=== PATIENT | female | born 1935 | race Hispanic/Latino ===

== ENCOUNTER 2017-08-01 17:39 | Outpatient (CLI) | payer MEDICARE ==
--- NOTE | 2017-08-01 23:28 | XRay Report ---
FINAL REPORT PROCEDURE: XR CHEST ROUTINE 2V TECHNIQUE: PA and lateral chest radiographs were obtained. CPT 53710 HISTORY: Chronic kidney disease. COMPARISON: No prior studies are available for comparison. FINDINGS: Heart: Normal. Mediastinum/Vessels: Mild aortic tortuosity and calcification. Lungs/Pleural space: Moderate hyperinflation and emphysematous change with increased retrosternal clear space and flattening of the diaphragms. Bony thorax: Sternotomy. Osteopenia with multilevel disc space narrowing and osteophytes. Slight wedge compression in the mid thoracic spine. Other: IMPRESSION: No radiographic evidence of acute cardiopulmonary disease. Mild aortic tortuosity and calcification. Moderate hyperinflation with emphysematous change.
== END 2017-08-01 17:40 | disposition home or self-care (01) ==
LOC: XRAY 17:39
DX: N18.5 Chronic kidney disease, stage 5 (principal); J98.11 Atelectasis; M85.88 Other specified disorders of bone density and structure, other site; I70.0 Atherosclerosis of aorta; Z98.890 Other specified postprocedural states
CPT/HCPCS: 36415; 71046; 86705; 86706; 86707; 87350

== ENCOUNTER 2017-08-29 12:43 | Inpatient (IN) | payer MEDICARE ==
[2017-08-29 13:55] LABS: Basophils # (Auto) 0.2 K/mm3 (0.0-0.1); Basophils % (Auto) 2.5 % (0.0-1.8); Eosinophils # (Auto) 0.2 K/mm3 (0.0-0.4); Eosinophils % (Auto) 2.8 % (0.0-4.3); Hematocrit 31.8 % (30.3-42.9); Hemoglobin 10.3 gm/dl (10.1-14.3); Lymphocytes # (Auto) 1.3 K/mm3 (1.2-5.4); Lymphocytes % (Auto) 21.9 % (13.4-35.0); Mean Corpuscular HGB Conc 33 % (30-34); Mean Corpuscular Hemoglobin 31 pg (28-32); Mean Corpuscular Volume 96 fl (79-97); Monocytes # (Auto) 0.6 K/mm3 (0.0-0.8); Monocytes % (Auto) 9.8 % (0.0-7.3); Platelet Count 195 K/mm3 (140-440); Red Cell Distribution Width 17.7 % (13.2-15.2)
--- NOTE | 2017-08-29 13:55 | Emergency Department Report ---
ED General Adult HPI - General Chief complaint: High BP Stated complaint: VAGAL Time Seen by Provider: 08/29/17 13:44 Source: patient, EMS Mode of arrival: Stretcher Limitations: No Limitations - History of Present Illness Initial comments: Patient is a 81-year-old female on chronic dialysis. She was on a Sunday schedule. However she had dialysis on Sunday she states instead an expectation of a Lexiscan today and dialysis subsequently. In any case she reports to me that she got very weak and dizzy felt like she might pass out and the kitchen bath designer office today. She was sent to this facility by Dr. Irvin. Thu her nurse practitioner reported to me that the patient had an episode of complete heart block. I do have some telemetry monitoring strips and do note at least a hypotensive episode with 2-1 block and bradycardia. Complete records are not available. In any case the patient presents to the emergency department now feeling largely back to normal. She states that she has been told that her heart rate was slow at times past. He is currently taking amlodipine (and clonidine?). She has a history of hypothyroidism. Severity scale (0 -10): 0 Consistency: now resolved Associated Symptoms: denies other symptoms - Related Data Home Medications Medication Instructions Recorded Confirmed Last Taken Amlodipine Besylate/Valsartan 1 each PO QDAY 08/29/17 08/29/17 Unknown [Amlodipine-Valsartan 5-160 mg] Aspirin [Aspirin BABY CHEW TAB] 81 mg PO QDAY 08/29/17 08/29/17 Unknown AtorvaSTATin [Lipitor] 10 mg PO QHS 08/29/17 08/29/17 Unknown Levothyroxine [Synthroid] 0.088 mg PO QAM 08/29/17 08/29/17 Unknown Sertraline [Zoloft] 50 mg PO QDAY 08/29/17 08/29/17 Unknown cloNIDine [Catapres] 0.1 mg PO QDAY 08/29/17 08/29/17 Unknown Allergies Allergy/AdvReac Type Severity Reaction Status Date / Time No Known Allergies Allergy Unverified 11/06/13 11:14 ED Review of Systems ROS: Stated complaint: VAGAL Other details as noted in HPI Constitutional: weakness (episode of weakness and near syncope following Archana scan. Otherwise patient denies intercurrent symptoms). denies: chills, fever Eyes: denies: eye pain, eye discharge, vision change ENT: denies: ear pain, throat pain Respiratory: denies: cough, shortness of breath, wheezing Cardiovascular: denies: chest pain, palpitations Endocrine: no symptoms reported Gastrointestinal: denies: abdominal pain, nausea, diarrhea Genitourinary: denies: urgency, dysuria, discharge Musculoskeletal: denies: back pain, joint swelling, arthralgia Skin: denies: rash, lesions Neurological: denies: headache, weakness, paresthesias Psychiatric: denies: anxiety, depression Hematological/Lymphatic: denies: easy bleeding, easy bruising ED Past Medical Hx - Past Medical History Hx Renal Disease: Yes - Social History Substance Use Type: None - Medications Home Medications: Home Medications Medication Instructions Recorded Confirmed Last Taken Type Amlodipine Besylate/Valsartan 1 each PO QDAY 08/29/17 08/29/17 Unknown History [Amlodipine-Valsartan 5-160 mg] Aspirin [Aspirin BABY CHEW TAB] 81 mg PO QDAY 08/29/17 08/29/17 Unknown History AtorvaSTATin [Lipitor] 10 mg PO QHS 08/29/17 08/29/17 Unknown History Levothyroxine [Synthroid] 0.088 mg PO QAM 08/29/17 08/29/17 Unknown History Sertraline [Zoloft] 50 mg PO QDAY 08/29/17 08/29/17 Unknown History cloNIDine [Catapres] 0.1 mg PO QDAY 08/29/17 08/29/17 Unknown History ED Physical Exam - General Limitations: No Limitations General appearance: alert, in no apparent distress - Head Head exam: Present: atraumatic, normocephalic - Eye Eye exam: Present: normal appearance. Absent: scleral icterus - ENT ENT exam: Present: mucous membranes moist - Neck Neck exam: Present: normal inspection - Respiratory Respiratory exam: Present: normal lung sounds bilaterally, other (dialysis catheter site right chest). Absent: respiratory distress - Cardiovascular Cardiovascular Exam: Present: normal rhythm, bradycardia (initially bradycardic just below 60). Absent: systolic murmur, diastolic murmur, rubs, gallop - GI/Abdominal GI/Abdominal exam: Present: soft, normal bowel sounds. Absent: distended, tenderness, guarding, rebound, rigid - Extremities Exam Extremities exam: Present: normal inspection - Back Exam Back exam: Present: normal inspection - Neurological Exam Neurological exam: Present: alert, oriented X3, CN II-XII intact. Absent: motor sensory deficit - Psychiatric Psychiatric exam: Present: normal affect, normal mood - Skin Skin exam: Present: warm, dry, intact, normal color. Absent: rash ED Course Vital Signs 08/29/17 13:30 Temperature 98.8 F Pulse Rate 70 Respiratory 13 Rate Blood Pressure 199/47 [Left] O2 Sat by Pulse 97 Oximetry ED Medical Decision Making - Lab Data Laboratory Results - last 24 hr 08/29/17 08/29/17 08/29/17 13:39 13:39 13:39 WBC 6.1 RBC 3.30 L Hgb 10.3 Hct 31.8 MCV 96 MCH 31 MCHC 33 RDW 17.7 H Plt Count 195 Lymph % (Auto) 21.9 [place] % (Auto) 9.8 H Eos % (Auto) 2.8 Baso % (Auto) 2.5 H Lymph # 1.3 [place] # 0.6 Eos # 0.2 Baso # 0.2 H Seg Neutrophils % 63.0 Seg Neutrophils # 3.9 PT INR APTT Sodium 144 Potassium 4.4 Chloride 104.6 Carbon Dioxide 26 Anion Gap 18 BUN 37 H Creatinine 3.1 H Estimated GFR 14 BUN/Creatinine Ratio 12 Glucose 106 H Calcium 9.6 Phosphorus Magnesium 1.80 Total Bilirubin Direct Bilirubin Indirect Bilirubin AST ALT Alkaline Phosphatase Total Creatine Kinase 35 CK-MB (CK-2) 2.0 CK-MB (CK-2) Rel Index 5.7 H Troponin T 0.026 NT-Pro-B Natriuret Pep 6395 H Total Protein Albumin Albumin/Globulin Ratio TSH Free T4 08/29/17 08/29/17 08/29/17 13:39 13:58 13:58 WBC RBC Hgb Hct MCV MCH MCHC RDW Plt Count Lymph % (Auto) [place] % (Auto) Eos % (Auto) Baso % (Auto) Lymph # [place] # Eos # Baso # Seg Neutrophils % Seg Neutrophils # PT 13.3 INR 0.96 APTT 32.7 Sodium Potassium Chloride Carbon Dioxide Anion Gap BUN Creatinine Estimated GFR BUN/Creatinine Ratio Glucose Calcium Phosphorus 3.70 Magnesium Total Bilirubin 0.40 Direct Bilirubin < 0.2 Indirect Bilirubin 0.2 AST 14 ALT 7 Alkaline Phosphatase 94 Total Creatine Kinase CK-MB (CK-2) CK-MB (CK-2) Rel Index Troponin T NT-Pro-B Natriuret Pep Total Protein 6.4 Albumin 3.6 L Albumin/Globulin Ratio 1.3 TSH 0.422 Free T4 1.22 08/29/17 16:29 WBC RBC Hgb Hct MCV MCH MCHC RDW Plt Count Lymph % (Auto) [place] % (Auto) Eos % (Auto) Baso % (Auto) Lymph # [place] # Eos # Baso # Seg Neutrophils % Seg Neutrophils # PT INR APTT Sodium Potassium Chloride Carbon Dioxide Anion Gap BUN Creatinine Estimated GFR BUN/Creatinine Ratio Glucose Calcium Phosphorus Magnesium Total Bilirubin Direct Bilirubin Indirect Bilirubin AST ALT Alkaline Phosphatase Total Creatine Kinase CK-MB (CK-2) CK-MB (CK-2) Rel Index Troponin T 0.017 NT-Pro-B Natriuret Pep Total Protein Albumin Albumin/Globulin Ratio TSH Free T4 - EKG Data -: EKG Interpreted by Me - EKG Data Sinus bradycardia first-degree AV block left bundle-branch block 08/29/17 19:52 - Radiology Data interpreted by me: Chest x-ray permacath right chest no decompensation Critical care attestation.: If time is entered above; I have spent that time in minutes in the direct care of this critically ill patient, excluding procedure time. ED Disposition Clinical Impression: Complete heart block, First degree AV block, Left bundle branch block, End stage renal disease on dialysis Cardiomyopathy Qualifiers: Cardiomyopathy type: unspecified Qualified Code(s): I42.9 - Cardiomyopathy, unspecified Disposition: OP ADMIT IP TO THIS HOSP Is pt being admited?: Yes Does the pt Need Aspirin: Yes Condition: Stable Time of Disposition: 17:00
[2017-08-29 14:12] LABS: Calcium 9.6 mg/dL (8.4-10.2)
[2017-08-29 14:16] LABS: Alanine Aminotransferase 7 units/L (7-56); Albumin 3.6 g/dL (3.9-5)
--- NOTE | 2017-08-29 14:18 | XRay Report ---
Single view chest: Compared to 08/01/17. History: Dysphagia. Findings: Borderline cardiomegaly. Trachea is midline. Large-bore venous catheter tip in mid superior vena cava. No consolidation, pneumothorax or pleural effusion. Impression: No acute cardiopulmonary findings.
[2017-08-29 14:28] LABS: Bilirubin,Direct < 0.2 mg/dL (0-0.2)
[2017-08-29 14:38] LABS: Free T4 (Free Thyroxine) 1.22 ng/dL (0.76-1.46)
[2017-08-29 14:54] LABS: INR 0.96 (0.87-1.13)
[2017-08-29 14:55] LABS: Partial Thromboplastin Time 32.7 Sec. (24.2-36.6)
--- NOTE | 2017-08-29 19:07 | History and Physical Report ---
History of Present Illness Date of examination: 08/29/17 Medications and Allergies Allergies Allergy/AdvReac Type Severity Reaction Status Date / Time No Known Allergies Allergy Unverified 11/06/13 11:14 Exam - Constitutional Vitals: Temp Pulse Resp BP Pulse Ox 98.8 F 70 15 153/53 98 08/29/17 13:30 08/29/17 18:44 08/29/17 18:44 08/29/17 18:44 08/29/17 18:44 Results - Labs CBC & Chem 7: 08/29/17 13:39 08/29/17 13:39 Labs: Laboratory Last Values WBC 6.1 K/mm3 (4.5-11.0) 08/29/17 13:39 RBC 3.30 M/mm3 (3.65-5.03) L 08/29/17 13:39 Hgb 10.3 gm/dl (10.1-14.3) 08/29/17 13:39 Hct 31.8 % (30.3-42.9) 08/29/17 13:39 MCV 96 fl (79-97) 08/29/17 13:39 MCH 31 pg (28-32) 08/29/17 13:39 MCHC 33 % (30-34) 08/29/17 13:39 RDW 17.7 % (13.2-15.2) H 08/29/17 13:39 Plt Count 195 K/mm3 (140-440) 08/29/17 13:39 Lymph % (Auto) 21.9 % (13.4-35.0) 08/29/17 13:39 [place] % (Auto) 9.8 % (0.0-7.3) H 08/29/17 13:39 Eos % (Auto) 2.8 % (0.0-4.3) 08/29/17 13:39 Baso % (Auto) 2.5 % (0.0-1.8) H 08/29/17 13:39 Lymph # 1.3 K/mm3 (1.2-5.4) 08/29/17 13:39 [place] # 0.6 K/mm3 (0.0-0.8) 08/29/17 13:39 Eos # 0.2 K/mm3 (0.0-0.4) 08/29/17 13:39 Baso # 0.2 K/mm3 (0.0-0.1) H 08/29/17 13:39 Seg Neutrophils % 63.0 % (40.0-70.0) 08/29/17 13:39 Seg Neutrophils # 3.9 K/mm3 (1.8-7.7) 08/29/17 13:39 PT 13.3 Sec. (12.2-14.9) 08/29/17 13:58 INR 0.96 (0.87-1.13) 08/29/17 13:58 APTT 32.7 Sec. (24.2-36.6) 08/29/17 13:58 Sodium 144 mmol/L (137-145) 08/29/17 13:39 Potassium 4.4 mmol/L (3.6-5.0) 08/29/17 13:39 Chloride 104.6 mmol/L (98-107) 08/29/17 13:39 Carbon Dioxide 26 mmol/L (22-30) 08/29/17 13:39 Anion Gap 18 mmol/L 08/29/17 13:39 BUN 37 mg/dL (7-17) H 08/29/17 13:39 Creatinine 3.1 mg/dL (0.7-1.2) H 08/29/17 13:39 Estimated GFR 14 ml/min 08/29/17 13:39 BUN/Creatinine Ratio 12 % 08/29/17 13:39 Glucose 106 mg/dL (65-100) H 08/29/17 13:39 Calcium 9.6 mg/dL (8.4-10.2) 08/29/17 13:39 Phosphorus 3.70 mg/dL (2.5-4.5) 08/29/17 13:39 Magnesium 1.80 mg/dL (1.7-2.3) 08/29/17 13:39 Total Bilirubin 0.40 mg/dL (0.1-1.2) 08/29/17 13:39 Direct Bilirubin < 0.2 mg/dL (0-0.2) 08/29/17 13:39 Indirect Bilirubin 0.2 mg/dL 08/29/17 13:39 AST 14 units/L (5-40) 08/29/17 13:39 ALT 7 units/L (7-56) 08/29/17 13:39 Alkaline Phosphatase 94 units/L (35-129) 08/29/17 13:39 Total Creatine Kinase 35 units/L (30-135) 08/29/17 13:39 CK-MB (CK-2) 2.0 ng/mL (0.0-4.0) 08/29/17 13:39 CK-MB (CK-2) Rel Index 5.7 (0-4) H 08/29/17 13:39 Troponin T 0.017 ng/mL (0.00-0.029) 08/29/17 16:29 NT-Pro-B Natriuret Pep 6395 pg/mL (0-900) H 08/29/17 13:39 Total Protein 6.4 g/dL (6.3-8.2) 08/29/17 13:39 Albumin 3.6 g/dL (3.9-5) L 08/29/17 13:39 Albumin/Globulin Ratio 1.3 % 08/29/17 13:39 TSH 0.422 mlU/mL (0.270-4.200) 08/29/17 13:58 Free T4 1.22 ng/dL (0.76-1.46) 08/29/17 13:58
[2017-08-29] MEDS ORDERED: TYLENOL PO PRN (19:09)
[2017-08-29] MEDS ORDERED: ZOFRAN IV PRN (19:09)
[2017-08-29] MEDS ORDERED: SODIUM CHLORIDE FLUSH SYRINGE 10 ML IV PRN (19:09)
[2017-08-29] MEDS ORDERED: PERCOCET 5/325 PO PRN (19:09)
[2017-08-29] MEDS: PEPCID PO SCH (19:54)
[2017-08-29] MEDS ORDERED: BABY ASPIRIN PO ONE (19:58)
[2017-08-29] MEDS ORDERED: COZAAR PO SCH (20:00)
[2017-08-29] MEDS: SODIUM CHLORIDE FLUSH SYRINGE 10 ML IV SCH (21:52)
[2017-08-29] MEDS: HEPARIN SUB-Q SCH (21:52)
[2017-08-29] MEDS ORDERED: HEPARIN ONE (21:53)
[2017-08-30] MEDS: APRESOLINE IV PRN ×2 (00:19→21:37)
[2017-08-30 07:32] LABS: Basophils # (Auto) 0.1 K/mm3 (0.0-0.1); Eosinophils # (Auto) 0.2 K/mm3 (0.0-0.4); Eosinophils % (Auto) 4.1 % (0.0-4.3); Hematocrit 29.4 % (30.3-42.9); Hemoglobin 9.6 gm/dl (10.1-14.3); Lymphocytes # (Auto) 1.8 K/mm3 (1.2-5.4); Lymphocytes % (Auto) 32.2 % (13.4-35.0); Mean Corpuscular HGB Conc 33 % (30-34); Mean Corpuscular Hemoglobin 31 pg (28-32); Mean Corpuscular Volume 96 fl (79-97); Monocytes # (Auto) 0.6 K/mm3 (0.0-0.8); Monocytes % (Auto) 9.9 % (0.0-7.3); Platelet Count 188 K/mm3 (140-440); Red Blood Count 3.08 M/mm3 (3.65-5.03); Red Cell Distribution Width 17.2 % (13.2-15.2)
[2017-08-30 07:42] LABS: Creatine Kinase MB 1.6 ng/mL (0.0-4.0)
[2017-08-30 07:46] LABS: Albumin 3.2 g/dL (3.9-5)
--- NOTE | 2017-08-30 08:15 | Event Note ---
Date: 08/29/17 See dictated H/p in reports
--- NOTE | 2017-08-30 08:51 | Consultation ---
History of Present Illness - Reason for Consult Consult date: 08/30/17 end stage renal disease - History of Present Illness Mrs. Bui is a 81yo with ESRD on HD who was in usual state of health until yesterday when during a stress test for cardiac clearance, she experienced nausea, vomiting. Patient reportedly became bradycardic. Per ED MD note, cardiology [employer] DOCTOR reported that the patient had an episode of complete heart block. She was sent to the ED and has been admitted for further evaluation. She denies chest pain and SOB. Nephrology consultation has been requested for management of ESRD. Past History Past Medical History: CAD, ESRD, hypertension, hyperlipidemia, hypothyroidism Past Surgical History: CABG Social history: no significant social history Family history: no significant family history Medications and Allergies Allergies Allergy/AdvReac Type Severity Reaction Status Date / Time No Known Allergies Allergy Unverified 11/06/13 11:14 Home Medications Medication Instructions Recorded Confirmed Last Taken Type Amlodipine Besylate/Valsartan 1 each PO QDAY 08/29/17 08/29/17 Unknown History [Amlodipine-Valsartan 5-160 mg] Aspirin [Aspirin BABY CHEW TAB] 81 mg PO QDAY 08/29/17 08/29/17 Unknown History AtorvaSTATin [Lipitor] 10 mg PO QHS 08/29/17 08/29/17 Unknown History Levothyroxine [Synthroid] 0.088 mg PO QAM 08/29/17 08/29/17 Unknown History Sertraline [Zoloft] 50 mg PO QDAY 08/29/17 08/29/17 Unknown History cloNIDine [Catapres] 0.1 mg PO QDAY 08/29/17 08/29/17 Unknown History Active Meds: Active Medications Acetaminophen (Tylenol) 650 mg PO Q4H PRN PRN Reason: Pain MILD(1-3)/Fever >100.5/RG Aspirin (Baby Aspirin) 81 mg PO QDAY BRIANNA Atorvastatin Calcium (Lipitor) 10 mg PO QHS BRIANNA Famotidine (Pepcid) 20 mg PO QDAY BRIANNA Last Admin: 08/29/17 19:54 Dose: 20 mg Heparin Sodium (Porcine) (Heparin) 5,000 unit SUB-Q Q12HR BRIANNA Last Admin: 08/29/17 21:52 Dose: 5,000 unit Hydralazine HCl (Apresoline) 10 mg IV Q4H PRN PRN Reason: Hypertension Last Admin: 08/30/17 00:19 Dose: 10 mg Levothyroxine Sodium (Synthroid) 88 mcg PO DAILY@0600 [facility] Losartan Potassium (Cozaar) 100 mg PO QDAY [facility] Last Admin: 08/29/17 19:52 Dose: 100 mg Miscellaneous Medication (Amlodipine Besylate/Valsartan [Amlodipine-Valsartan 5- 160 Mg]) 1 each PO QDAY [facility] Ondansetron HCl (Zofran) 4 mg IV Q8H PRN PRN Reason: Nausea And Vomiting Oxycodone/Acetaminophen (Percocet 5/325) 1 tab PO Q6H PRN PRN Reason: Pain, Moderate (4-6) Sertraline HCl (Zoloft) 50 mg PO QDAY [facility] Sodium Chloride (Sodium Chloride Flush Syringe 10 Ml) 10 ml IV BID [facility] Last Admin: 08/29/17 21:52 Dose: 10 ml Sodium Chloride (Sodium Chloride Flush Syringe 10 Ml) 10 ml IV PRN PRN PRN Reason: LINE FLUSH Review of Systems All systems: negative Exam - Vital Signs Vital signs: Vital Signs Pulse Resp Pulse Ox 66 14 99 08/29/17 13:20 08/29/17 13:20 08/29/17 13:20 - General Appearance General appearance: well-developed, well-nourished EENT: ATNC Neck: Present: Other (RIJ permcath) Respiratory: Clear to Ascultation Heart: regular, S1S2 Gastrointestinal: Present: normal. Absent: tenderness, distended Integumentary: no rash, warm and dry Neurologic: no focal deficit, alert and oriented x3 Musculoskeletal: Present: other (no edema) Psychiatric: cooperative Results - Lab Results 08/30/17 07:09 08/30/17 07:09 Most recent lab results Calcium 9.0 mg/dL (8.4-10.2) 08/30/17 07:09 Phosphorus 3.70 mg/dL (2.5-4.5) 08/29/17 13:39 Magnesium 1.80 mg/dL (1.7-2.3) 08/30/17 07:09 Assessment and Plan Impression: * End stage renal disease on HD * Bradycardia * Hypertension * Anemia secondary to ESRD Plan: * Resume outpatient TTS schedule * UF as tolerated * Note order for TTE * Cardiology consultation pending * Dose medications for renal function * Epogen TIW prn * Renal diet
--- NOTE | 2017-08-30 09:26 | History and Physical Report ---
CHIEF COMPLAINT: 1. High blood pressure. 2. Near syncope. HISTORY OF PRESENT ILLNESS: A 81-year-old female on dialysis, was supposed to have a Lexiscan today. The patient was in the life insurance underwriter's office where she became very weak and dizzy and the Cardiology office noticed she had a hypotensive episode with bradycardia and was sent to the Emergency Room for further evaluation. In the Emergency Room, the patient was back to her normal state. The patient apparently had slow heart rates in the past. The patient does not have any chest pain or diaphoresis or palpitations. PAST MEDICAL HISTORY: Significant for hypertension, hypothyroidism, and depression. PAST SURGICAL HISTORY: AV fistula. SOCIAL HISTORY: Does not smoke. FAMILY HISTORY: Hypertension. REVIEW OF SYSTEMS: Significant for feeling weak and dizzy and near syncope. Otherwise, review of systems is essentially negative. A 14-point review of systems done. PHYSICAL EXAMINATION: GENERAL: Elderly female, cooperative during examination. VITAL SIGNS: Initial blood pressure was like 194/44, heart rate was 55, respiratory rate was 13, sats are 98%. HEENT: Unremarkable. Pupils equal and reactive. NECK: Supple, no lymphadenopathy, no thyromegaly. LUNGS: Clear to auscultation and percussion. Good air entry. CARDIOVASCULAR: S1, S2 heard. No gallop, no murmur, no rub. Apical impulse in left fifth intercostal space and midclavicular line. ABDOMEN: Soft and benign. No hepatosplenomegaly. No guarding, no rigidity. Hernial orifices were normal. EXTREMITIES: Good pedal pulses. No pedal edema. CENTRAL NERVOUS SYSTEM: Alert and oriented x 4, nonfocal exam. LABORATORY DATA: EKG shows sinus bradycardia, first-degree block and left bundle branch block. Chest x-ray, Perm-A-Cath, right chest. No decompensation. CBC was normal. Electrolytes, BUN and creatinine are 37 and 3.1. BNP was 6395. Chest x-ray shows no CHF. ASSESSMENT AND PLAN: 1. Complete heart block. We will defer to Cardiology, Dr. Marla Irvin from [facility] was consulted. IV fluids for now. 2. Near syncope. Syncope workup. The patient to get Lexiscan scan and echocardiogram. 3. Hypertension. Continue antihypertensives. Losartan . 4. Hypothyroidism. Continue levothyroxine. 5. Depression. Continue sertraline. 6. Deep venous thrombosis prophylaxis, heparin 5000 q.12h. 7. Hyperlipidemia. Continue atorvastatin 10 mg p.o. daily. [facility]# [id number] KENN/NTS
[2017-08-30] MEDS ORDERED: NACL 0.9% 100 ML IV PRN (10:00)
[2017-08-30] MEDS ORDERED: NON-FORMULARY (Amlodipine Besylate/Valsartan [Amlodipine-Valsartan 5-160 Mg] 1 EACH) PO SCH (10:00)
[2017-08-30] MEDS ORDERED: DOBUTAMINE Stress 100 MG in D5W 75 ML IV SCH (11:00)
--- NOTE | 2017-08-30 11:32 | Event Note ---
Date: 08/30/17 Detailed cardiology consultation dictated. Pt was recently consulted in our office by Dr. Gibbons for surgical clearance for AV graft insertion by Dr. Sierra. Pt has past medical history significant for CAD s/p CABG, ESRD requiring HD, HTN, DM. She was scheduled for lexiscan MPI stress test in our office and presented yesterday to our office for stress test. She underwent lexiscan MPI stress test yesterday and following injection of lexiscan, she was noted to develop nausea, bradycardia, dizziness. She was evaluated by Dr. Irvin and was noted to be in complete heart block, which resolved shortly after onset. She was referred to ED for further eval/ management. She is in NSR today and will undergo dobutamine stress MPI tomorrow AM after BPs are optimized. Chintan COLVIN NP / DR. GIBBONS
[2017-08-30] MEDS ORDERED: APRESOLINE ONE (11:36)
[2017-08-30] MEDS ORDERED: APRESOLINE IV ONE (12:36)
[2017-08-30] MEDS ORDERED: NACL 0.9% 1000 ML 2,000 ML ONE (12:42)
[2017-08-30] MEDS: PEPCID PO SCH (14:25)
[2017-08-30] MEDS: BABY ASPIRIN PO SCH (14:25)
[2017-08-30] MEDS: HEPARIN SUB-Q SCH ×2 (14:25→21:38)
[2017-08-30] MEDS: ZOLOFT PO SCH (14:26)
[2017-08-30] MEDS: SYNTHROID PO SCH (14:26)
[2017-08-30] MEDS: DIOVAN PO SCH (14:26)
[2017-08-30] MEDS: NORVASC PO SCH (14:26)
[2017-08-30] MEDS: SODIUM CHLORIDE FLUSH SYRINGE 10 ML IV SCH ×2 (14:26→21:47)
[2017-08-30] MEDS ORDERED: HEPARIN ONE (14:49)
--- NOTE | 2017-08-30 15:30 | Consultation ---
History of Present Illness - Reason for Consult Consult date: 08/30/17 Evaluation for Long-Term Hemodialysis Access - History of Present Illness This patient is a 81-year-old female that was admitted via the emergency room on 08/29/2017 due to a complete heart block following initiation of an outpatient Lexiscan study. The patient is known to our service. She has end-stage renal disease on hemodialysis through a permacath. She was in the process of preparing for long- term hemodialysis access. Due to a history of coronary artery disease a preoperative cardiac clearance was requested prior to surgery. She was in the process of this clearance when the above-stated episode occurred. She was subsequently transferred to the emergency room and thus admitted. She has since converted back to normal sinus rhythm, and has now been cleared for surgery by cardiology. A vascular surgery consult is now requested to further evaluate. The Patient is being evaluated while on hemodialysis. She currently complains of headache. Past History Past Medical History: dialysis, DVT, ESRD, hypertension, hyperlipidemia, other ( depression). denies: hyperthyroidism (hypothroidism) Past Surgical History: Other (perma-cath placement) Social history: denies: smoking Family history: hypertension Medications and Allergies Allergies Allergy/AdvReac Type Severity Reaction Status Date / Time No Known Allergies Allergy Unverified 11/06/13 11:14 Home Medications Medication Instructions Recorded Confirmed Last Taken Type Amlodipine Besylate/Valsartan 1 each PO QDAY 08/29/17 08/29/17 Unknown History [Amlodipine-Valsartan 5-160 mg] Aspirin [Aspirin BABY CHEW TAB] 81 mg PO QDAY 08/29/17 08/29/17 Unknown History AtorvaSTATin [Lipitor] 10 mg PO QHS 08/29/17 08/29/17 Unknown History Levothyroxine [Synthroid] 0.088 mg PO QAM 08/29/17 08/29/17 Unknown History Sertraline [Zoloft] 50 mg PO QDAY 08/29/17 08/29/17 Unknown History cloNIDine [Catapres] 0.1 mg PO QDAY 08/29/17 08/29/17 Unknown History Active Meds: Active Medications Acetaminophen (Tylenol) 650 mg PO Q4H PRN PRN Reason: Pain MILD(1-3)/Fever >100.5/RG Amlodipine Besylate (Norvasc) 5 mg PO QDAY BRIANNA Last Admin: 08/30/17 14:26 Dose: Not Given Aspirin (Baby Aspirin) 81 mg PO QDAY PENDING SALE TO [facility] Last Admin: 08/30/17 14:25 Dose: Not Given Atorvastatin Calcium (Lipitor) 10 mg PO QHS PENDING SALE TO [facility] Famotidine (Pepcid) 20 mg PO QDAY PENDING SALE TO [facility] Last Admin: 08/30/17 14:25 Dose: Not Given Heparin Sodium (Porcine) (Heparin) 5,000 unit SUB-Q Q12HR PENDING SALE TO [facility] Last Admin: 08/30/17 14:25 Dose: Not Given Hydralazine HCl (Apresoline) 10 mg IV Q4H PRN PRN Reason: Hypertension Last Admin: 08/30/17 00:19 Dose: 10 mg Sodium Chloride (Nacl 0.9%) 100 mls @ 999 mls/hr IV SHAR PRN PRN Reason: Hypotension DOBUTAMINE Stress 100 mg/ (Dextrose) 100 mls @ 17.73 mls/hr IV ONCE PENDING SALE TO [facility]; Protocol Levothyroxine Sodium (Synthroid) 88 mcg PO DAILY@0600 PENDING SALE TO [facility] Last Admin: 08/30/17 14:26 Dose: Not Given Ondansetron HCl (Zofran) 4 mg IV Q8H PRN PRN Reason: Nausea And Vomiting Last Admin: 08/30/17 12:45 Dose: 4 mg Oxycodone/Acetaminophen (Percocet 5/325) 1 tab PO Q6H PRN PRN Reason: Pain, Moderate (4-6) Last Admin: 08/30/17 12:45 Dose: 1 tab Sertraline HCl (Zoloft) 50 mg PO QDAY PENDING SALE TO [facility] Last Admin: 08/30/17 14:26 Dose: Not Given Sodium Chloride (Sodium Chloride Flush Syringe 10 Ml) 10 ml IV BID PENDING SALE TO [facility] Last Admin: 08/30/17 14:26 Dose: Not Given Sodium Chloride (Sodium Chloride Flush Syringe 10 Ml) 10 ml IV PRN PRN PRN Reason: LINE FLUSH Valsartan (Diovan) 160 mg PO QDAY PENDING SALE TO [facility] Last Admin: 08/30/17 14:26 Dose: Not Given Review of Systems All systems: negative Exam - Constitutional Vitals: Temp Pulse Resp BP Pulse Ox 98.4 F 59 L 18 111/51 98 08/30/17 12:10 08/30/17 15:15 08/30/17 12:45 08/30/17 15:15 08/30/17 03:11 General appearance: Present: no acute distress - EENT Eyes: Present: EOM intact ENT: hearing intact - Neck Neck: Present: supple (RIJ PC) - Respiratory Respiratory effort: normal - Extremities Extremities: normal temperature - Psychiatric Psychiatric: appropriate mood/affect, intact judgment & insight, cooperative - Neurologic Neurologic: no focal deficits Results - Labs CBC & Chem 7: 08/30/17 07:09 08/30/17 07:09 Labs: Abnormal lab results 08/29/17 08/30/17 08/30/17 Range/Units 19:25 07:09 07:09 RBC 3.08 L (3.65-5.03) M/mm3 Hgb 9.6 L (10.1-14.3) gm/dl Hct 29.4 L (30.3-42.9) % RDW 17.2 H (13.2-15.2) % Boyd % (Auto) 9.9 H (0.0-7.3) % BUN 40 H (7-17) mg/dL Creatinine 3.3 H (0.7-1.2) mg/dL Glucose 101 H (65-100) mg/dL Hemoglobin A1c 9.3 H (4-6) % ALT 6 L (7-56) units/L CK-MB (CK-2) Rel Index (0-4) Total Protein 5.8 L (6.3-8.2) g/dL Albumin 3.2 L (3.9-5) g/dL 08/30/17 Range/Units 07:09 RBC (3.65-5.03) M/mm3 Hgb (10.1-14.3) gm/dl Hct (30.3-42.9) % RDW (13.2-15.2) % Boyd % (Auto) (0.0-7.3) % BUN (7-17) mg/dL Creatinine (0.7-1.2) mg/dL Glucose (65-100) mg/dL Hemoglobin A1c (4-6) % ALT (7-56) units/L CK-MB (CK-2) Rel Index 4.7 H (0-4) Total Protein (6.3-8.2) g/dL Albumin (3.9-5) g/dL Assessment and Plan This patient has end-stage renal disease on hemodialysis through a right internal jugular vein permacath. She is evaluated as an outpatient in our office for long-term hemodialysis access. Given her history of coronary artery disease, cardiac clearance was requested. When an outpatient Lexiscan was initiated, patient went into complete heart block. She was sent to the emergency room and subsequently admitted. She has since converted back to normal sinus rhythm. She has been cleared for surgery by cardiology. A vascular surgery consult has been requested to evaluate for long-term hemodialysis access. Patient was evaluated earlier today. She complains of a headache. Recommend allowing the patient to recover from this event. Okay to discharge from a vascular surgery standpoint when cleared medically. Patient should contact our office for follow-up. Outpatient left upper extremity AV graft creation can be scheduled for the next 1-2 weeks (as her condition allows). This was discussed with the patient who states understanding and agrees. Recommend no further venipunctures or blood pressure cuffs to the left upper extremity in preparation for the pending surgery. - Patient Problems (1) End stage renal disease on dialysis Current Visit: Yes Status: Acute (2) Complete heart block Current Visit: Yes Status: Acute (3) CAD (coronary artery disease) Current Visit: Yes Status: Acute (4) HTN (hypertension) Current Visit: Yes Status: Acute (5) Hypothyroidism Current Visit: Yes Status: Acute (6) Hyperlipidemia Current Visit: Yes Status: Acute
--- NOTE | 2017-08-30 15:51 | Progress Note ---
Assessment and Plan Assessment and plan: Mrs. Bui is a 81 yo woman with a history of CAD s/p CABG, ESRD requiring HD , HTN, DM type 2, dyslipidemia and hypothyrodism who admitted via the emergency room on 08/29/2017 due to a complete heart block following initiation of an outpatient Lexiscan studym at [employer] office, She underwent lexiscan MPI stress test yesterday and following injection of lexiscan, she was noted to develop nausea, bradycardia, dizziness. She was evaluated by Dr. Irvin and was noted to be in complete heart block, which resolved shortly after onset. -Cardiogenic syncope due to medication, lexiscan NM -ESRD: consulted and d/w communications maintainer -HD access: consulted Vascular surgery -DM type 2: ada, ssi, check a1c if not current -Hypertension: hold clonidine due to bradycardia, use prn iv hydralazine She is in NSR today and will undergo dobutamine stress MPI tomorrow AM after BPs are optimized. History Interval history: Patient was seen and examined. Follow-up on current diagnosis for syncope. Overnight uneventful. Patient denies any chest pain, shortness breath, nausea/ vomiting or severe headaches. Imaging, nursing note, chart, labs and old chart reviewed. Discussed with patient. Daughter Karolina Coleman and at bedside Hospitalist Physical - Physical exam Narrative exam: GEN: WDWN, NAD, Awake, Alert, Orientated x 3 HEENT: NCAT, EOMI, PERRL, OP Clear NECK: supple, no adenopathy, no thyromegaly, no JVD CVS/HEART: Reg bradycardia, normal S1S2, pulses present bilaterally CHEST/LUNGS: CTA B, Symmetrical chest expansion, good air entry bilaterally GI/Abdomen: soft, NTND, good bowel sounds, no guarding or rebound /Bladder: no suprapubic tenderness, no CVA or paraspinal tenderness EXT/Skin: no c/c/e, no obvious rash MSK: FROM x 4 Neuro: CN 2-12 grossly intact, no new focal deficits Psych: calm - Constitutional Vitals: Temp Pulse Resp BP Pulse Ox 98.4 F 58 L 18 111/50 98 08/30/17 12:10 08/30/17 15:25 08/30/17 12:45 08/30/17 15:25 08/30/17 03:11 General appearance: Present: no acute distress Results - Labs CBC & Chem 7: 08/30/17 07:09 08/30/17 07:09 Labs: Laboratory Last Values WBC 5.7 K/mm3 (4.5-11.0) 08/30/17 07:09 RBC 3.08 M/mm3 (3.65-5.03) L 08/30/17 07:09 Hgb 9.6 gm/dl (10.1-14.3) L 08/30/17 07:09 Hct 29.4 % (30.3-42.9) L 08/30/17 07:09 MCV 96 fl (79-97) 08/30/17 07:09 MCH 31 pg (28-32) 08/30/17 07:09 MCHC 33 % (30-34) 08/30/17 07:09 RDW 17.2 % (13.2-15.2) H 08/30/17 07:09 Plt Count 188 K/mm3 (140-440) 08/30/17 07:09 Lymph % (Auto) 32.2 % (13.4-35.0) 08/30/17 07:09 Desha % (Auto) 9.9 % (0.0-7.3) H 08/30/17 07:09 Eos % (Auto) 4.1 % (0.0-4.3) 08/30/17 07:09 Baso % (Auto) Patrol Lady 08/30/17 07:09 Lymph # 1.8 K/mm3 (1.2-5.4) 08/30/17 07:09 Desha # 0.6 K/mm3 (0.0-0.8) 08/30/17 07:09 Eos # 0.2 K/mm3 (0.0-0.4) 08/30/17 07:09 Baso # 0.1 K/mm3 (0.0-0.1) 08/30/17 07:09 Seg Neutrophils % 51.3 % (40.0-70.0) 08/30/17 07:09 Seg Neutrophils # 2.9 K/mm3 (1.8-7.7) 08/30/17 07:09 PT 13.3 Sec. (12.2-14.9) 08/29/17 13:58 INR 0.96 (0.87-1.13) 08/29/17 13:58 APTT 32.7 Sec. (24.2-36.6) 08/29/17 13:58 Sodium 144 mmol/L (137-145) 08/30/17 07:09 Potassium 4.0 mmol/L (3.6-5.0) 08/30/17 07:09 Chloride 105.6 mmol/L (98-107) 08/30/17 07:09 Carbon Dioxide 26 mmol/L (22-30) 08/30/17 07:09 Anion Gap 16 mmol/L 08/30/17 07:09 BUN 40 mg/dL (7-17) H 08/30/17 07:09 Creatinine 3.3 mg/dL (0.7-1.2) H 08/30/17 07:09 Estimated GFR 13 ml/min 08/30/17 07:09 BUN/Creatinine Ratio 12 % 08/30/17 07:09 Glucose 101 mg/dL (65-100) H 08/30/17 07:09 Hemoglobin A1c 9.3 % (4-6) H 08/29/17 19:25 Calcium 9.0 mg/dL (8.4-10.2) 08/30/17 07:09 Phosphorus 3.70 mg/dL (2.5-4.5) 08/29/17 13:39 Magnesium 1.80 mg/dL (1.7-2.3) 08/30/17 07:09 Total Bilirubin 0.30 mg/dL (0.1-1.2) 08/30/17 07:09 Direct Bilirubin < 0.2 mg/dL (0-0.2) 08/29/17 13:39 Indirect Bilirubin 0.2 mg/dL 08/29/17 13:39 AST 12 units/L (5-40) 08/30/17 07:09 ALT 6 units/L (7-56) L 08/30/17 07:09 Alkaline Phosphatase 86 units/L (35-129) 08/30/17 07:09 Total Creatine Kinase 34 units/L (30-135) 08/30/17 07:09 CK-MB (CK-2) 1.6 ng/mL (0.0-4.0) 08/30/17 07:09 CK-MB (CK-2) Rel Index 4.7 (0-4) H 08/30/17 07:09 Troponin T 0.019 ng/mL (0.00-0.029) 08/29/17 19:25 NT-Pro-B Natriuret Pep 6395 pg/mL (0-900) H 08/29/17 13:39 Total Protein 5.8 g/dL (6.3-8.2) L 08/30/17 07:09 Albumin 3.2 g/dL (3.9-5) L 08/30/17 07:09 Albumin/Globulin Ratio 1.2 % 08/30/17 07:09 TSH 0.570 mlU/mL (0.270-4.200) 08/30/17 07:09 Free T4 1.22 ng/dL (0.76-1.46) 08/29/17 13:58
--- NOTE | 2017-08-30 23:13 | Consultation ---
CARDIOLOGY CONSULTATION HISTORY OF PRESENT ILLNESS: The patient is a 81-year-old female who was evaluated by me in the office on 08/28/2017 as a preoperative evaluation for AV fistula placement. The patient was scheduled for IV Lexiscan nuclear imaging. When patient received IV Lexiscan, the patient was noted to have significant bradycardia with 2:1 block and bradycardia. The patient felt dizzy and she felt like passing out. Subsequently, she recovered. She was admitted for observation overnight. EKG done in the Emergency Room showed sinus bradycardia with first degree AV block and left bundle branch block. Laboratory data done in the Emergency Room showed potassium of 4.4, BUN of 37, creatinine of 3.1 with estimated of 14. Troponin T was 0.026 with NT-proBNP being 6395. Chest x-ray showed a Perm-A-Cath in the right side. Presently, the patient is being monitored and showing sinus rhythm with occasional blocked APCs. Otherwise, asymptomatic of dizziness. The patient was seen by Dr. Onofre and he is planning to do dialysis on her. Her medications at home included amlodipine, valsartan combination 5/160 mg, aspirin once a day, Lipitor 10 mg, and Synthroid 0.088 mg once a day, in addition to Zoloft 50 mg a day and Catapres 0.1 mg. Chest x-ray showed borderline cardiomegaly with venous catheter in the mid superior vena cava. The patient's past medical history included history of aortocoronary bypass surgery performed in 2000 along with end-stage renal disease, started on hemodialysis last month or so. She has longstanding essential hypertension in addition to diabetes. She has occasional episodes of dizziness for the last 3 years. REVIEW OF SYSTEMS: As mentioned above, she has chronic dizziness. Otherwise, denied any chest pain, shortness of breath. She was not feeling well and tired for last many months, but her symptoms of feeling tired getting better after starting on hemodialysis. Denied any chest pain or orthopnea. No leg swelling at this point. No fever, no chills. The patient's EKG showed sinus rhythm with underlying left bundle branch block. PHYSICAL EXAMINATION: GENERAL: The patient appears to be comfortable, in no acute distress, well-developed, well-nourished. HEENT: Conjunctivae pink, sclera anicteric. NECK: Supple. HEART: Regular. Probable S4. 2/6 systolic murmur noted. LUNGS: Clear. ABDOMEN: Benign. EXTREMITIES: Without edema. NEUROLOGIC: Alert and oriented x 3. FINAL IMPRESSION: Transient 2:1 AV block with bradycardia and dizziness after receiving IV Lexiscan, most likely this is related to her medication, namely IV Lexiscan. The patient had resting nuclear images performed, but not after the stress. At this point, considering patient has history of heart attack and bypass surgery in 2000 and nuclear imaging is incomplete, we will try to get an IV dobutamine myocardial perfusion imaging today. Continue the rest of the medications. We will clear her for AV fistula. Discussed with Dr. Xavier and Dr. Sierra will be informed that she can have her AV fistula performed. The patient does have some blocked APCs, but we can consider further workup as an outpatient including a monitor at a later date. Her complaint of dizziness is chronic, no syncopal episodes. She is not having any anginal symptoms at this time. JOB# [id number] BRANDON/DOMINGO
[2017-08-31] MEDS: APRESOLINE IV PRN (05:09)
[2017-08-31] MEDS: SYNTHROID PO SCH (06:00)
[2017-08-31] MEDS: DIOVAN PO SCH (09:19)
[2017-08-31] MEDS: NORVASC PO SCH (09:20)
[2017-08-31] MEDS: BABY ASPIRIN PO SCH (10:15)
[2017-08-31] MEDS: HEPARIN SUB-Q SCH (10:15)
[2017-08-31] MEDS: PEPCID PO SCH (10:15)
[2017-08-31] MEDS: ZOLOFT PO SCH (10:15)
[2017-08-31] MEDS: SODIUM CHLORIDE FLUSH SYRINGE 10 ML IV SCH (10:15)
[2017-08-31] MEDS ORDERED: DOBUTAMINE Stress 100 MG in D5W 75 ML IV SCH (12:00)
--- NOTE | 2017-08-31 12:32 | Progress Note ---
Assessment and Plan Assessment and plan: Mrs. Bui is a 81 yo woman with a history of CAD s/p CABG, ESRD requiring HD , HTN, DM type 2, dyslipidemia and hypothyrodism who admitted via the emergency room on 08/29/2017 due to a complete heart block following initiation of an outpatient Lexiscan studym at [employer] [facility], She underwent lexiscan MPI stress test yesterday and following injection of lexiscan, she was noted to develop nausea, bradycardia, dizziness. She was evaluated by Dr. Irvin and was noted to be in complete heart block, which resolved shortly after onset. -Cardiogenic syncope due to medication, lexiscan NM -ESRD: consulted and d/w ceramic research engineer -HD access: consulted Vascular surgery -DM type 2: ada, ssi, check a1c if not current -Hypertension: hold clonidine due to bradycardia, use prn iv hydralazine d/c if stress test is negative and cleared by Cardiology History Interval history: Patient was seen and examined. Follow-up on current diagnosis for syncope. Overnight uneventful. Patient denies any chest pain, shortness breath, nausea/ vomiting or severe headaches. Imaging, nursing note, chart, labs and old chart reviewed. Discussed with patient. Daughter Karolina Coleman and at bedside Hospitalist Physical - Physical exam Narrative exam: GEN: WDWN, NAD, Awake, Alert, Orientated x 3 HEENT: NCAT, EOMI, PERRL, OP Clear NECK: supple, no adenopathy, no thyromegaly, no JVD CVS/HEART: Reg bradycardia, normal S1S2, pulses present bilaterally CHEST/LUNGS: CTA B, Symmetrical chest expansion, good air entry bilaterally GI/Abdomen: soft, NTND, good bowel sounds, no guarding or rebound /Bladder: no suprapubic tenderness, no CVA or paraspinal tenderness EXT/Skin: no c/c/e, no obvious rash MSK: FROM x 4 Neuro: CN 2-12 grossly intact, no new focal deficits Psych: calm - Constitutional Vitals: Temp Pulse Resp BP Pulse Ox 99.0 F 68 16 166/58 94 08/31/17 08:34 08/31/17 09:20 08/31/17 08:34 08/31/17 09:20 08/31/17 08:34 General appearance: Present: no acute distress Results - Labs CBC & Chem 7: 08/30/17 07:09 08/30/17 07:09 Labs: Laboratory Last Values WBC 5.7 K/mm3 (4.5-11.0) 08/30/17 07:09 RBC 3.08 M/mm3 (3.65-5.03) L 08/30/17 07:09 Hgb 9.6 gm/dl (10.1-14.3) L 08/30/17 07:09 Hct 29.4 % (30.3-42.9) L 08/30/17 07:09 MCV 96 fl (79-97) 08/30/17 07:09 MCH 31 pg (28-32) 08/30/17 07:09 MCHC 33 % (30-34) 08/30/17 07:09 RDW 17.2 % (13.2-15.2) H 08/30/17 07:09 Plt Count 188 K/mm3 (140-440) 08/30/17 07:09 Lymph % (Auto) 32.2 % (13.4-35.0) 08/30/17 07:09 Metcalfe % (Auto) 9.9 % (0.0-7.3) H 08/30/17 07:09 Eos % (Auto) 4.1 % (0.0-4.3) 08/30/17 07:09 Baso % (Auto) Health Care Analyst 08/30/17 07:09 Lymph # 1.8 K/mm3 (1.2-5.4) 08/30/17 07:09 Metcalfe # 0.6 K/mm3 (0.0-0.8) 08/30/17 07:09 Eos # 0.2 K/mm3 (0.0-0.4) 08/30/17 07:09 Baso # 0.1 K/mm3 (0.0-0.1) 08/30/17 07:09 Seg Neutrophils % 51.3 % (40.0-70.0) 08/30/17 07:09 Seg Neutrophils # 2.9 K/mm3 (1.8-7.7) 08/30/17 07:09 PT 13.3 Sec. (12.2-14.9) 08/29/17 13:58 INR 0.96 (0.87-1.13) 08/29/17 13:58 APTT 32.7 Sec. (24.2-36.6) 08/29/17 13:58 Sodium 144 mmol/L (137-145) 08/30/17 07:09 Potassium 4.0 mmol/L (3.6-5.0) 08/30/17 07:09 Chloride 105.6 mmol/L (98-107) 08/30/17 07:09 Carbon Dioxide 26 mmol/L (22-30) 08/30/17 07:09 Anion Gap 16 mmol/L 08/30/17 07:09 BUN 40 mg/dL (7-17) H 08/30/17 07:09 Creatinine 3.3 mg/dL (0.7-1.2) H 08/30/17 07:09 Estimated GFR 13 ml/min 08/30/17 07:09 BUN/Creatinine Ratio 12 % 08/30/17 07:09 Glucose 101 mg/dL (65-100) H 08/30/17 07:09 Hemoglobin A1c 9.3 % (4-6) H 08/29/17 19:25 Calcium 9.0 mg/dL (8.4-10.2) 08/30/17 07:09 Phosphorus 3.70 mg/dL (2.5-4.5) 08/29/17 13:39 Magnesium 1.80 mg/dL (1.7-2.3) 08/30/17 07:09 Total Bilirubin 0.30 mg/dL (0.1-1.2) 08/30/17 07:09 Direct Bilirubin < 0.2 mg/dL (0-0.2) 08/29/17 13:39 Indirect Bilirubin 0.2 mg/dL 08/29/17 13:39 AST 12 units/L (5-40) 08/30/17 07:09 ALT 6 units/L (7-56) L 08/30/17 07:09 Alkaline Phosphatase 86 units/L (35-129) 08/30/17 07:09 Total Creatine Kinase 34 units/L (30-135) 08/30/17 07:09 CK-MB (CK-2) 1.6 ng/mL (0.0-4.0) 08/30/17 07:09 CK-MB (CK-2) Rel Index 4.7 (0-4) H 08/30/17 07:09 Troponin T 0.019 ng/mL (0.00-0.029) 08/29/17 19:25 NT-Pro-B Natriuret Pep 6395 pg/mL (0-900) H 08/29/17 13:39 Total Protein 5.8 g/dL (6.3-8.2) L 08/30/17 07:09 Albumin 3.2 g/dL (3.9-5) L 08/30/17 07:09 Albumin/Globulin Ratio 1.2 % 08/30/17 07:09 TSH 0.570 mlU/mL (0.270-4.200) 08/30/17 07:09 Free T4 1.22 ng/dL (0.76-1.46) 08/29/17 13:58
--- NOTE | 2017-08-31 12:35 | Discharge Summary ---
Providers - Providers Date of Admission: 08/29/17 19:09 Date of discharge: 08/31/17 Attending physician: HONG MONTEJO 08/29/17 19:09 Consult to Physician [CONS] Routine Comment: Consulting Provider: KIERA ONTIVEROS Physician Instructions: Reason For Exam: esrd 08/29/17 19:54 Consult to Physician [CONS] Urgent Comment: Consulting Provider: YUNIOR MARIE Physician Instructions: Reason For Exam: complete heart block near syncope 08/30/17 15:44 Consult to Physician [CONS] Routine Comment: Consulting Provider: ZENOBIA CHOWDHURY Physician Instructions: already notified, just add to their list Reason For Exam: av graft placement, pt of Dr. Chowdhury Primary care physician: LICENSED GUIDE Hospitalization Condition: Stable Hospital course: Mrs. Bui is a 81 yo woman with a history of CAD s/p CABG, ESRD requiring HD , HTN, DM type 2, dyslipidemia and hypothyrodism who admitted via the emergency room on 08/29/2017 due to a complete heart block following initiation of an outpatient Lexiscan studym at [employer] [facility] office, She underwent lexiscan MPI stress test yesterday and following injection of lexiscan, she was noted to develop nausea, bradycardia, dizziness. She was evaluated by Dr. Marie and was noted to be in complete heart block, which resolved shortly after onset. -Cardiogenic syncope due to medication, lexiscan NM -ESRD: consulted and d/w asphalt worker -HD access: consulted Vascular surgery -DM type 2: ada, ssi, check a1c if not current -Hypertension: hold clonidine due to bradycardia, use prn iv hydralazine d/c if stress test is negative and cleared by Cardiology Disposition: DC-01 TO HOME OR SELFCARE Time spent for discharge: 32 min Core Measure Documentation - Palliative Care Palliative Care/ Comfort Measures: Not Applicable - Core Measures Any of the following diagnoses?: none - VTE Discharge Requirements Deep Vein Thrombosis/Pulmonary Embolism Present on Admission: No Has pt received <5 days of overlap therapy or INR<2.0: No Anticoagulant overlap therapy prescribed at discharge: No Contraindication No Overlap Therapy order at DC: Not Indicated Exam - Physical Exam Narrative exam: GEN: WDWN, NAD, Awake, Alert, Orientated x 3 HEENT: NCAT, EOMI, PERRL, OP Clear NECK: supple, no adenopathy, no thyromegaly, no JVD CVS/HEART:rrr, normal S1S2, pulses present bilaterally CHEST/LUNGS: CTA B, Symmetrical chest expansion, good air entry bilaterally GI/Abdomen: soft, NTND, good bowel sounds, no guarding or rebound /Bladder: no suprapubic tenderness, no CVA or paraspinal tenderness EXT/Skin: no c/c/e, no obvious rash MSK: FROM x 4 Neuro: CN 2-12 grossly intact, no new focal deficits Psych: calm - Constitutional Vitals: Temp Pulse Resp BP Pulse Ox 99.0 F 68 16 166/58 94 08/31/17 08:34 08/31/17 09:20 08/31/17 08:34 08/31/17 09:20 08/31/17 08:34 Plan Activity: other (no strenous activities including driving until cleared by [facility] The[facility]) Diet: low salt Follow up with: PRIMARY CARE, [Primary Care Provider] - 3-5 Days ZENOBIA CHOWDHURY MD [Staff Physician] - 7 Days KIERA ONTIVEROS MD [Staff Physician] - 7 Days YUNIOR MARIE MD [Staff Physician] - 7 Days
--- NOTE | 2017-08-31 14:20 | Progress Note ---
Assessment and Plan Impression: * End stage renal disease on HD * Bradycardia * Hypertension * Anemia secondary to ESRD Plan: * No acute indication for diaylsis today; continue outpatient TTS schedule * UF as tolerated * Stress test and TTE pending * Dose medications for renal function * Epogen TIW prn * Renal diet * Discharge per cardiology; stable from a renal standpoint Subjective Date of service: 08/31/17 Interval history: Patient feels good today. She tolerated stress test without event. Objective - Vital Signs Vital signs: Vital Signs - 12hr 08/31/17 08/31/17 08/31/17 05:02 08:34 09:19 Temperature 98.1 F 99.0 F Pulse Rate 68 72 68 Respiratory 18 16 Rate Blood Pressure 177/53 166/58 168/58 O2 Sat by Pulse 94 94 Oximetry 08/31/17 09:20 Temperature Pulse Rate 68 Respiratory Rate Blood Pressure 166/58 O2 Sat by Pulse Oximetry - General Appearance General appearance: well-developed, well-nourished EENT: ATNC Respiratory: Present: Clear to Ascultation Cardiology: regular, S1S2 Gastrointestinal: normal, no tenderness, no distended Integumentary: no rash, warm and dry Neurologic: no focal deficit Musculoskeletal: other (no edema) Psychiatric: cooperative - Lab 08/30/17 07:09 08/30/17 07:09 Most recent lab results Calcium 9.0 mg/dL (8.4-10.2) 08/30/17 07:09 Phosphorus 3.70 mg/dL (2.5-4.5) 08/29/17 13:39 Magnesium 1.80 mg/dL (1.7-2.3) 08/30/17 07:09
--- NOTE | 2017-08-31 14:57 | Progress Note ---
Assessment and Plan Assessment: Transient complete heart block - during lexiscan MPI stress test; most likely medication induced CAD s/p CABG ESRD requiring HD HTN DM Plan: S/p dobutamine MPI stress test this AM which was negative. Currently stable cardiac status. Pt may discharge home from cardiology standpoint. Recommend follow up in our office with Dr. Odom within 1-2 weeks of hospital discharge ([phone]). The patient has been seen in conjunction with Dr. Odom who agrees with the assessment and plan of care. Subjective Date of service: 08/31/17 Principal diagnosis: transient CHB Interval history: pt with no current cardiac complaints. for dobutamine stress test this AM. telemetry reviewed - pt maintained NSR overnight with no acute events. Objective Last Vital Signs Temp 99.0 F 08/31/17 08:34 Pulse 68 08/31/17 09:20 Resp 16 08/31/17 08:34 BP 166/58 08/31/17 09:20 Pulse Ox 94 08/31/17 08:34 - Physical Examination General: No Apparent Distress HEENT: Positive: PERRL, Normocephaly, Mucus Membranes Moist Neck: Positive: neck supple, trachea midline, Other (RIJ permcath) Cardiac: Positive: Reg Rate and Rhythm, S1/S2 Lungs: Positive: clear to auscultation Neuro: Positive: Grossly Intact, Cranial Nerve 2-12 Intact Abdomen: Positive: Soft. Negative: Tender Skin: Positive: Clear. Negative: Rash, Wound Musculoskeletal: No Fluid Collection, No Pain, Normal Range of Motion Extremities: Absent: edema - Imaging and Cardiology EKG: report reviewed, image reviewed - Telemetry EKG Rhythm: Sinus Rhythm
[2017-08-31 16:36] VITALS: BP 179/61
--- NOTE | 2017-09-01 08:34 | Treadmill Report ---
DOBUTAMINE STRESS NUCLEAR TEST REPORT AGE: 81. SEX: Female. REFERRING PHYSICIAN: Jose A Xavier M.D. The patient received 10 mCi of technetium 99m Myoview intravenously under resting conditions. Resting myocardial perfusion scan was done. Subsequently, the patient underwent dobutamine stress test as per the protocol. During dobutamine stress, the patient received 28 mCi of technetium 99m Myoview intravenously. After 30-60 minutes, post stress images were done. Computerized reconstruction images were performed for analysis. The post-stress images revealed uniform distribution of the radiopharmaceutical in the left ventricular myocardium. Gated study did not reveal any wall motion abnormality. The left ventricular ejection fraction was normal and was calculated to be 59%. The resting images did not reveal any perfusion abnormality. CONCLUSION: 1. No perfusion abnormality of the left ventricular myocardium was demonstrated in the resting as well as stress images obtained after the patient underwent dobutamine stress test. 2. No wall motion abnormality. 3. Normal left ventricular ejection fraction of 59%. JOB# [id number] [facility]
== END 2017-08-31 18:05 | disposition home or self-care (01) | DRG 308 ==
LOC: ED 12:43 → 4A 19:09
PROVIDERS: ADMIT Internal Medicine; ATTEND Internal Medicine
PROC: 5A1D70Z Performance of Urinary Filtration, Intermittent, Less than 6 Hours Per Day (ICD-10-PCS; principal; 2017-08-30)
DX: I44.2 Atrioventricular block, complete (principal); N18.6 End stage renal disease; I16.1 Hypertensive emergency; I42.9 Cardiomyopathy, unspecified; I12.0 Hypertensive chronic kidney disease with stage 5 chronic kidney disease or end stage renal disease; E03.9 Hypothyroidism, unspecified; Z79.82 Long term (current) use of aspirin; I44.7 Left bundle-branch block, unspecified; Z99.2 Dependence on renal dialysis; I25.10 Atherosclerotic heart disease of native coronary artery without angina pectoris; Z95.1 Presence of aortocoronary bypass graft; D63.1 Anemia in chronic kidney disease; R00.1 Bradycardia, unspecified; Z82.49 Family history of ischemic heart disease and other diseases of the circulatory system; R55 Syncope and collapse; E78.5 Hyperlipidemia, unspecified; T50.905A Adverse effect of unspecified drugs, medicaments and biological substances, initial encounter; Y92.9 Unspecified place or not applicable
CPT/HCPCS: 36415; 71045; 78452; 80048; 80053; 80074; 82550; 82553; 83036; 83735; 83880; 84100; 84439; 84443; 84484; 85025; 85610; 85730; 93005; 93010; 93017; 93306; 96374; 99285; A9270-GY; A9502; J0360; J1250; J1644; J2405; J7030

== ENCOUNTER 2018-05-30 09:40 | Outpatient (CLI) | payer MEDICARE ==
--- NOTE | 2018-05-30 14:29 | Mammography Report ---
BILATERAL DIGITAL SCREENING MAMMOGRAM with CAD : 05/30/18 09:40:00 CLINICAL: Routine screening. COMPARISON:11/06/13 FINDINGS: The breasts are heterogeneously dense, which may obscure small masses.Bilateral benign calcifications, some of which are benign arterial calcifications. No mass, architectural distortion or suspicious calcifications. IMPRESSION: No mammographic evidence of malignancy. BI-RADS CATEGORY: 2 -- Benign RECOMMENDATION: Routine mammographic screening in one year. COMMENT: Patient follow-up letters are generated by our [employer] application.
== END 2018-05-30 09:41 | disposition home or self-care (01) ==
LOC: MAMMO 09:40
PROVIDERS: ATTEND Internal Medicine Nephrology
DX: Z12.31 Encounter for screening mammogram for malignant neoplasm of breast (principal); I10 Essential (primary) hypertension; E03.9 Hypothyroidism, unspecified; E78.5 Hyperlipidemia, unspecified
CPT/HCPCS: 77067